=== PATIENT | male | born 1980 | race Caucasian/White ===

== ENCOUNTER → 2018-01-24 | Outpatient (CLI) | payer BC ==
--- NOTE | 2018-01-24 15:58 | CT ---
EXAMINATION TYPE: CT sinus wo con DATE OF EXAM: 01/24/2018 COMPARISON: NONE HISTORY: Chronic sinusitis per order and loss of smell per patient. CT DLP: 563 mGycm. Automated Exposure Control for Dose Reduction was Utilized. TECHNIQUE: CT scan of the sinuses is performed without contrast, axial images are obtained, coronal r eformatted images are also reviewed. FINDINGS: There is 2.3 cm mucous retention cyst or polyp in the inferior right maxillary sinus. There are few tiny adjacent mucous retention cysts or polyps laterally on axial image 16. There is mild to moderate mucosal thickening in the superior medial maxillary sinuses near level of antra. The ostiom eatal complex is occluded on the left and narrowed on the right but patent. There is opacification bi lateral anterior ethmoid sinuses. There is eccentric mucosal thickening inferior right sphenoid sinus . There is eccentric mucosal thickening in inferior right frontal sinus. Nasal bridge is eccentricall y prominent to the left possible old fracture. Visualized portion of mastoid air cells show no abnormal opacification. The globes are intact bilate rally. IMPRESSION: Chronic paranasal sinus disease as detailed above.
== END ==
LOC: RADCTMAIN 15:30
PROVIDERS: ATTEND Otolaryngology Plastic Surgery within the Head & Neck
DX: J32.9 Chronic sinusitis, unspecified (principal)
CPT/HCPCS: 70486

== ENCOUNTER → 2018-10-20 | Outpatient (CLI) | payer BC ==
[2018-10-20 14:23] LABS: HCT 45.1 % (39.0-53.0); HGB 14.9 gm/dL (13.0-17.5); Mean Platelet Volume 7.2; Platelet Count 273 k/uL (150-450); RBC 4.96 m/uL (4.30-5.90); RDW 14.3 % (11.5-15.5); WBC 6.2 k/uL (3.8-10.6)
[2018-10-20 19:59] LABS: African American GFR (CKD) 110.2 (60.0-200.0); Anion Gap 9.4 mmol/L (4.00-12.00); Calcium 9.4 mg/dL (8.7-10.3); Carbon Dioxide 27.6 mmol/L (21.6-31.8); Potassium 4.8 mmol/L (3.5-5.5)
== END | disposition home or self-care (01) ==
LOC: LABWHC1 13:41
PROVIDERS: ATTEND Podiatrist Foot & Ankle Surgery
DX: Z01.812 Encounter for preprocedural laboratory examination (principal)
CPT/HCPCS: 36415; 80048; 85027

== ENCOUNTER 2018-10-25 12:58 | Day surgery (SDC) | payer BC ==
[2018-10-20 13:04] VITALS: BMI 33.0
[~2018-10-25 12:58] MED LIST: DEXAMETHASONE SOD PHOSPHATE 10 MG/ML 1 ML VIAL IV ONE; HYDROmorphone 0.5 MG/0.5 ML SYRINGE IVP PRN; KETOROLAC 30 MG/ML 1 ML VIAL IVP SCH; LACTATED RINGERS 1,000 ML IV SCH; LIDOCAINE 1% 20 ML VIAL (10MG/ML) FOR IV START INTRADERMA PRN; ONDANSETRON 4 MG/2 ML VIAL IVP PRN; Pre Op ABX Message 1 EACH MISC MISCELLANE ONE
[2018-10-25 13:23] VITALS: TEMP 98.2
[2018-10-25] MEDS ORDERED: fentaNYL (PF) 50 MCG/ML 2 ML AMP ONE (13:41)
[2018-10-25] MEDS ORDERED: MIDAZOLAM 2 MG/2 ML VIAL ONE (13:41)
[2018-10-25] MEDS ORDERED: PROPOFOL 10 MG/ML 20 ML VIAL IV ONE (13:41)
[2018-10-25] MEDS ORDERED: LIDOCAINE 1% INJ 10MG/ML (20 ML MDV) ONE (13:41)
[2018-10-25] MEDS ORDERED: LIDOCAINE 1% INJ 10MG/ML (20 ML MDV) SQ ONE (14:10)
--- NOTE | 2018-10-25 15:01 | P.OP ---
Date of Procedure: 10/25/18 Preoperative Diagnosis: Hypertrophied bone fourth metatarsal left foot Postoperative Diagnosis: Same Procedure(s) Performed: V metatarsal elevating osteotomy fourth metatarsal left foot Surgeon: Mauro Daniels Estimated Blood Loss (ml): 1 Description of Procedure: On the date of surgery the patient was taken to the operating room in good condition placed on the operating table in supine position where an IV was started and adequate IV anesthetic agents were utilized anesthesia was then further supplemented with approximately 16 mL of 1% Xylocaine plain line patient's left foot and ankle were then prepped and draped in the usual aseptic manner An ankle tourniquet was placed above the malleoli of the patient's right ankle over heavy web roll padding The patient's left foot and ankle were then elevated and exsanguinated of blood and after approximately 1 minutes. A time the ankle tourniquet was inflated to approximately 250 mmHg At this time attention was directed to the dorsal aspect of the distal one half of the shaft of the fourth metatarsal left foot where an approximately 3 cm dorsal linear incision was made the incision was deepened via sharp dissection down through the level of the subcu cutaneous tissues. All neurovascular structures encountered were identified isolated and were retracted and any bleeding vessels were clamped and electrocauterized. Throughout the surgical procedure copious amounts of sterile saline solution was used to irrigate the surgical site to call site was then carried deep down to level of the capsule and periosteal structures overlying the distal one half of the fourth metatarsal where the level of the metaphysis a dorsal to plantar osteotomy was performed at the fragment was displaced dorsally by a couple of millimeters and impacted back upon the spike created by the osteotomy the osteotomy was fixated with a 0.45 K wire Periosteal Structures As Well As Subcutaneous Tissue Layers Were Coaptated and Maintained Utilizing 3-0 Vicryl Simple Interrupted Suture the Skin Was Then Closed Utilizing 4-0 Nylon Simple Interrupted Suture Adaptic Kerlix Fluffs Four- Inch Conformer 4 Inch Coban Was Used To Form a Compression Dressing and the Ankle Tourniquet Was Deflated Adequate Hemostatic Return Was Seen in All Digits of the Patient's Left Foot Specifically the Fourth Toe The Patient Tolerated the Surgery and Anesthesia Well Was Taken to the Recovery Room in Good Postoperative Condition
[2018-10-25 15:02] VITALS: RESP 16
[2018-10-25 15:25] VITALS: BP 124/75; PULSE 66
== END 2018-10-25 15:37 | disposition home or self-care (01) ==
LOC: OR 12:58
PROVIDERS: ATTEND Podiatrist Foot & Ankle Surgery
DX: M89.372 Hypertrophy of bone, left ankle and foot (principal); E66.9 Obesity, unspecified; Z68.32 Body mass index [BMI] 32.0-32.9, adult
CPT/HCPCS: 28308; C1713; J2250; J1100; J0690; J2405; J2001; J3010; J2704

== ENCOUNTER → 2019-08-08 | Day surgery (SDC) | payer BC ==
[2019-08-06 16:10] VITALS: BMI 33.6
[~2019-08-08] MED LIST changes: -DEXAMETHASONE SOD PHOSPHATE 10 MG/ML 1 ML VIAL IV ONE; -HYDROmorphone 0.5 MG/0.5 ML SYRINGE IVP PRN; -KETOROLAC 30 MG/ML 1 ML VIAL IVP SCH; +LIDOCAINE 1% (10MG/ML) FOR IV START INTRADERMA ONE; -LIDOCAINE 1% 20 ML VIAL (10MG/ML) FOR IV START INTRADERMA PRN; -ONDANSETRON 4 MG/2 ML VIAL IVP PRN; +PROPOFOL 10 MG/ML 20 ML VIAL IV ONE; -Pre Op ABX Message 1 EACH MISC MISCELLANE ONE
[2019-08-08 08:41] LABS: Glucose,Whole Blood 91 mg/dL (75-99)
[2019-08-08 08:43] VITALS: TEMP 98.1
--- NOTE | 2019-08-08 09:16 | P.PCN ---
Date of Procedure: 08/08/19 Procedure(s) Performed: BRIEF HISTORY: Patient is a 38-year-old pleasant white male scheduled for an elective colonoscopy as a part of evaluation of left lower quadrant abdominal pain for the last 1 month duration. He was diagnosed with Crohn's colitis in 1999 and been maintained on balsalazide 3 tablets 3 times daily. Because of the severe left lower quadrant abdominal pain he was started on short course of tapering doses of prednisone for possible active colitis but patient continued to have persistent symptoms and hence is scheduled for colonoscopy to evaluate further. PROCEDURE PERFORMED: Colonoscopy with random biopsy. PREOPERATIVE DIAGNOSIS: Long-standing history of Crohn's colitis/left lower quadrant abdominal. IV sedation per Anesthesia. PROCEDURE: After informed consent was obtained, the patient, was brought into the endoscopy unit. IV sedation was administered by Anesthesia under continuous monitoring. Digital rectal examination was normal. Initially the Olympus CF-160 flexible video colonoscope was then inserted in the rectum, gradually advanced into the cecum without any difficulty. Careful examination was performed as the scope was gradually being withdrawn. Ileocecal valve and the appendiceal orifice were visualized and appeared normal. Prep was excellent. Mucosa of the cecum, ascending colon, appeared normal. In the proximal transverse colon close to the hepatic flexure there was scarring of the mucosa with scattered pseudopolyps and biopsies were done from this area. Rest of the transverse colon transverse colon appeared normal. In the descending colon extending between 50-60 cm from anal verge there were multiple scattered pseudopolyps with scalloping of the mucosa but no active colitis and multiple biopsies were done from this area. The distal, descending colon, sigmoid colon, and rectum appeared normal. Random biopsies were done at every 10 cm into well. Retroflexion was performed in the rectum and no lesions were seen. The patient tolerated the procedure well. IMPRESSION: 1. No active colitis 2. Scattered pseudopolyps especially in the proximal descending colon and hepatic flexure with mucosal scarring noted. Status post multiple biopsies 3. No evidence of colorectal neoplasia RECOMMENDATIONS: Findings of this examination were discussed with the patient as well as his family. He was advised to follow with the biopsy results. He will continue to taper the prednisone as directed and will continue on balsalazide 3 capsules 3 times a day. He'll be seen in office in 3-4 weeks.
[2019-08-08 09:34] VITALS: BP 127/85; PULSE 96; RESP 16
== END ==
LOC: ORWHC2ENDO 07:50
PROVIDERS: ATTEND Internal Medicine Gastroenterology
DX: K52.9 Noninfective gastroenteritis and colitis, unspecified (principal); K50.10 Crohn's disease of large intestine without complications; K63.89 Other specified diseases of intestine; E66.9 Obesity, unspecified; Z79.52 Long term (current) use of systemic steroids; Z79.899 Other long term (current) drug therapy; Z68.33 Body mass index [BMI] 33.0-33.9, adult
CPT/HCPCS: 88305; 87635; 45380; J2704

== ENCOUNTER → 2019-09-17 | Outpatient (CLI) | payer BC ==
--- NOTE | 2019-09-17 14:09 | CT ---
EXAMINATION TYPE: CT abdomen pelvis wo/w con DATE OF EXAM: 09/17/2019 COMPARISON: None HISTORY: ABDOMINAL PAIN X3 MONTHS, HX OF CROHNS CT DLP: 2714 mGycm Automated exposure control for dose reduction was used. TECHNIQUE: Helical acquisition of images was performed from the lung bases through the pelvis. CONTRAST: Performed with Oral Contrast and without and with IV Contrast, patient injected with 100 mL of Isovue 300. FINDINGS: Left inguinal hernia contains fat. LUNG BASES: No significant abnormality is appreciated. LIVER/GB: Focal low density foci subcentimeter in size scattered within the liver are too small to ch aracterize but likely represent cysts. Gallbladder is unremarkable. PANCREAS: No significant abnormal ity is seen. SPLEEN: Enlarged at approximately 16 cm ADRENALS: No significant abnormality is seen. KIDNEYS: No significant abnormality is seen. FREE AIR: No free air is visualized. RETROPERITONEAL ADENOPATHY: None visualized REPRODUCTIVE ORGANS: Prostate appears mildly enlarged. URINARY BLADDER: No significant abnormality is seen. PELVIC ADENOPATHY: None visualized. OSSEOUS STRUCTURES: There is a spinal curvature present. Bilateral spondylolysis present at L5, ther e is anterolisthesis grade 1 L5-S1. Loss of disc height present at L5-S1 BOWEL: No significant abnormality is seen. OTHER: IMPRESSION: CORRELATE FOR LEFT INGUINAL HERNIA. SPLENOMEGALY. ADDITIONAL FINDINGS ABOVE.
== END | disposition home or self-care (01) ==
LOC: RADCTMAIN 11:50
PROVIDERS: ATTEND Internal Medicine Gastroenterology
DX: K40.90 Unilateral inguinal hernia, without obstruction or gangrene, not specified as recurrent (principal); R16.1 Splenomegaly, not elsewhere classified
CPT/HCPCS: 74178; Q9967

== ENCOUNTER → 2020-01-11 | Outpatient (CLI) | payer BC ==
--- NOTE | 2020-01-12 11:44 | XR ---
EXAMINATION TYPE: XR lumbar spine with bend/flex DATE OF EXAM: 01/11/2020 CLINICAL HISTORY: Chronic back pain TECHNIQUE: Standing frontal and lateral neutral/flexion/extension views of the lumbar spine obtained COMPARISON: CT abdomen pelvis 09/17/2019 FINDINGS: There are 5 lumbar type vertebral bodies identified. The lumbar spine shows satisfactory alignment without evidence of acute fracture or dislocation. Vertebral body heights are within normal limits. There is disc space narrowing at L5-S1. There is grade 1 anterolisthesis of L5 on S1 with sp ondylolysis. There is grade 1 retrolisthesis of L4 on L5. No significant interval change of spondylol isthesis seen on flexion or extension views. IMPRESSION: 1. Grade 1 retrolisthesis of L4 on L5 and grade 1 anterolisthesis of L5 on S1, which are unchanged on flexion and extension views. 2. Disc space narrowing L5-S1.
--- NOTE | 2020-01-13 09:39 | MR ---
EXAMINATION TYPE: MR lumbar spine wo con DATE OF EXAM: 01/11/2020 COMPARISON: Lumbar spine x-ray January 11, 2020. CT abdomen and pelvis September 17, 2019 HISTORY: Back pain and radiculopathy greater than 6 weeks, chronic pain greater than 3 months per ord er. TECHNIQUE: Multiplanar, multisequence imaging of the lumbar spine is performed without IV contrast. FINDINGS: Sagittal images of the lumbar spine show vertebral body heights to remain satisfactory. The re is grade 1 retrolisthesis L4 on L5 and grade 1 anterolisthesis L5 on S1 redemonstrated. Bilateral pars defect L5 level noted on recent CT. There is multilevel disc desiccation with relative sparing o f L3-L4 level. There is moderate disc space narrowing L5-S1 level. There is annular tear posterior L 4-L5 level The conus medullaris is normal in position and signal ending mid L1 level. The bone marro w signal intensity is within normal limits. Axial images show mild broad disc bulges minimally effacing the anterior thecal sac at T12-L1 and L1- L2 levels. Axial images at L2-L3 and L3-L4 levels are within normal limits Axial images at L4-L5 level show spondylolisthesis with broad-based central disc protrusion mildly ef faces the anterior thecal sac, patent bilateral neural foramina. Axial images at the L5-S1 level show greater spondylolisthesis with pseudodisc herniation and moderat e facet arthropathy bilaterally. Spinal canal preserved. Patent bilateral neural foramina. Paraspinal muscle bulk is maintained. IMPRESSION: Bilateral pars defect L5 level with spondylolisthesis and degenerative changes lower lumb ar spine as detailed above.
== END | disposition home or self-care (01) ==
LOC: RADMRIMAIN 18:32
PROVIDERS: ATTEND Neurological Surgery
DX: M99.73 Connective tissue and disc stenosis of intervertebral foramina of lumbar region (principal); M43.16 Spondylolisthesis, lumbar region; M43.17 Spondylolisthesis, lumbosacral region; M47.26 Other spondylosis with radiculopathy, lumbar region; G89.29 Other chronic pain
CPT/HCPCS: 72114; 72148